=== PATIENT | female | born 1970 | race American Indian/Alaskan Native ===

== ENCOUNTER 2019-03-14 21:01 | Emergency (ER) | payer MEDICAID ==
[2019-03-14] MEDS ORDERED: PROVENTIL IH ONE (21:24)
[2019-03-14] MEDS ORDERED: NACL 0.9% 1000 ML 1,000 ML IV ONE (21:24)
[2019-03-14] MEDS ORDERED: ATIVAN IV STA (21:25)
[2019-03-14 21:51] LABS: Hematocrit 38.4 % (30.3-42.9); Hemoglobin 12.9 gm/dl (10.1-14.3); Mean Corpuscular HGB Conc 34 % (30-34); Mean Corpuscular Volume 82 fl (79-97); Platelet Count 234 K/mm3 (140-440); Red Blood Count 4.69 M/mm3 (3.65-5.03); Red Cell Distribution Width 15.2 % (13.2-15.2)
--- NOTE | 2019-03-14 21:53 | Emergency Department Report ---
ED General Adult HPI - General Chief complaint: Dyspnea/Respdistress Stated complaint: ASTHMA Time Seen by Provider: 03/14/19 21:11 Source: patient, EMS (ems notes not available at time of chart dictation), RN notes reviewed Mode of arrival: Stretcher Limitations: No Limitations - History of Present Illness Initial comments: This is a 48-year-old female. This patient is not known to this provider previously. She reportedly has a past medical history of asthma, HIV, on antiviral therapy, states undetectable viral load, history of right mastectomy, port, 2, question anxiety, question chronic pain, and states that she is not . She presents to the ER today with a complaint of shortness of breath. She reports that she felt like her asthma was acting up earlier on today, and she started to breathe rapidly, and began to cramp up all over. She also reports that she temporarily became unresponsive, and that a friend or family member thought that her "eyes looked glassy." However, the patient states she did not lose consciousness. At the same time, the patient states that she had central chest wall pain is simultaneous back pain. However, she has chronic back pain from scoliosis. She denies recent aspirin use, and she denies DVT, pulmonary embolism risk factors. The patient reportedly took albuterol prior to my arrival, and this improved her respiratory symptoms. She is not having shortness of breath at this time. -: Sudden Location: chest, back Quality: aching Consistency: intermittent Improves with: medication Worsens with: none - Related Data Home Medications Medication Instructions Recorded Confirmed Last Taken ALBUTEROL NEB's [Proventil] 2.5 mg IH TID PRN 03/14/19 03/14/19 Unknown ALBUTEROL NEB's [Proventil] 2.5 mg IH TID PRN 03/14/19 03/14/19 Unknown Acyclovir [Zovirax Tab] 400 mg PO DAILY 03/14/19 03/14/19 Unknown Budesonide/Formoterol Fumarate 10.2 gm IH DAILY 03/14/19 03/14/19 Unknown [Symbicort 80-4.5 Mcg Inhaler] Elviteg/Anahi/Emtric/Tenofo Ala 1 tab PO DAILY 03/14/19 03/14/19 Unknown [Genvoya (Nf)] Fluticasone/Salmeterol [Advair 1 puff IH BID 03/14/19 03/14/19 Unknown Diskus 100-50 mcg] Gabapentin [Neurontin] 300 mg PO Q8HR 03/14/19 03/14/19 Unknown Pantoprazole [Protonix] 40 mg PO BID 03/14/19 03/14/19 Unknown Sulfamethoxazole/Trimethoprim 1 each PO BID 03/14/19 03/14/19 Unknown [Bactrim DS TAB] Previous Rx's Medication Instructions Recorded Last Taken Type Acetaminophen [Non-Aspirin Extra 500 mg PO Q6HR PRN #30 tablet 03/14/19 Unknown Rx Strength] Albuterol Sulfate [Proair 90 mcg IH Q4HR PRN #2 aer.pow.ba 03/14/19 Unknown Rx Respiclick] Aspirin [Aspirin BABY CHEW TAB] 81 mg PO QDAY #30 tab.chew 03/14/19 Unknown Rx Famotidine [Pepcid] 20 mg PO BID #30 tablet 03/14/19 Unknown Rx Allergies Allergy/AdvReac Type Severity Reaction Status Date / Time No Known Allergies Allergy Unverified 03/14/19 21:21 ED Review of Systems ROS: Stated complaint: ASTHMA Other details as noted in HPI Constitutional: malaise, weakness Eyes: denies: eye discharge ENT: congestion Respiratory: cough, shortness of breath, wheezing Cardiovascular: chest pain, palpitations Gastrointestinal: denies: vomiting Genitourinary: denies: dysuria Musculoskeletal: back pain, arthralgia, myalgia Skin: denies: lesions Neurological: weakness Psychiatric: anxiety ED Past Medical Hx - Past Medical History Previous Medical History?: Yes Hx of Cancer: Yes (Right Mastectomy) Hx Asthma: Yes Hx HIV: Yes - Surgical History Past Surgical History?: Yes Additional Surgical History: Right Mastectomy, Port, Csection x 2 - Social History Smoking Status: Never Smoker - Medications Home Medications: Home Medications Medication Instructions Recorded Confirmed Last Taken Type ALBUTEROL NEB's [Proventil] 2.5 mg IH TID PRN 03/14/19 03/14/19 Unknown History ALBUTEROL NEB's [Proventil] 2.5 mg IH TID PRN 03/14/19 03/14/19 Unknown History Acetaminophen [Non-Aspirin Extra 500 mg PO Q6HR PRN #30 tablet 03/14/19 Unknown Rx Strength] Acyclovir [Zovirax Tab] 400 mg PO DAILY 03/14/19 03/14/19 Unknown History Albuterol Sulfate [Proair 90 mcg IH Q4HR PRN #2 aer.pow.ba 03/14/19 Unknown Rx Respiclick] Aspirin [Aspirin BABY CHEW TAB] 81 mg PO QDAY #30 tab.chew 03/14/19 Unknown Rx Budesonide/Formoterol Fumarate 10.2 gm IH DAILY 03/14/19 03/14/19 Unknown History [Symbicort 80-4.5 Mcg Inhaler] Elviteg/Anahi/Emtric/Tenofo Ala 1 tab PO DAILY 03/14/19 03/14/19 Unknown History [Genvoya (Nf)] Famotidine [Pepcid] 20 mg PO BID #30 tablet 03/14/19 Unknown Rx Fluticasone/Salmeterol [Advair 1 puff IH BID 03/14/19 03/14/19 Unknown History Diskus 100-50 mcg] Gabapentin [Neurontin] 300 mg PO Q8HR 03/14/19 03/14/19 Unknown History Pantoprazole [Protonix] 40 mg PO BID 03/14/19 03/14/19 Unknown History Sulfamethoxazole/Trimethoprim 1 each PO BID 03/14/19 03/14/19 Unknown History [Bactrim DS TAB] ED Physical Exam - General Limitations: No Limitations General appearance: alert, anxious - Head Head exam: Present: atraumatic, normocephalic - Eye Eye exam: Present: normal appearance - ENT ENT exam: Present: normal exam, normal orophraynx, mucous membranes moist, normal external ear exam - Neck Neck exam: Present: normal inspection, full ROM. Absent: tenderness, meningismus - Respiratory Respiratory exam: Present: normal lung sounds bilaterally, chest wall tenderness (chaperoned by CECILIO Gamboa). Absent: respiratory distress, rales, rhonchi, strid or - Cardiovascular Cardiovascular Exam: Present: regular rate, normal rhythm, normal heart sounds. Absent: bradycardia, tachycardia, irregular rhythm, systolic murmur, diastolic murmur, rubs, gallop - GI/Abdominal GI/Abdominal exam: Present: soft. Absent: distended, tenderness, guarding, rebound, rigid, pulsatile mass - Extremities Exam Extremities exam: Present: normal inspection, full ROM, other (2+ pulses noted in the bilateral upper, lower extremities. Compartments soft. No long bony tenderness. The pelvis is stable.). Absent: pedal edema, joint swelling, calf tenderness - Back Exam Back exam: Present: normal inspection, full ROM. Absent: tenderness, CVA tenderness (R), CVA tenderness (L), paraspinal tenderness, vertebral tenderness - Neurological Exam Neurological exam: Present: alert, oriented X3, other (Extraocular movements intact. Tongue midline. No facial droop. Facial sensation intact to light touch in the V1, V2, V3 distribution bilaterally. 5 and 5 strength in 4 ext remities.. Sensation is intact to light touch in 4 extremities.). Absent: motor sensory deficit - Psychiatric Psychiatric exam: Present: anxious - Skin Skin exam: Present: warm, dry, intact, normal color. Absent: rash ED Course Vital Signs 03/14/19 03/14/19 03/14/19 21:24 22:10 22:30 Temperature 98.9 F Pulse Rate 93 H 110 H Pulse Rate [ 99 H Throughout] Respiratory 22 20 Rate Respiratory 18 Rate [ Throughout] Blood Pressure 124/80 Blood Pressure 114/63 [Left] O2 Sat by Pulse 100 100 Oximetry 03/14/19 22:53 Temperature Pulse Rate Pulse Rate [ Throughout] Respiratory 20 Rate Respiratory Rate [ Throughout] Blood Pressure Blood Pressure [Left] O2 Sat by Pulse Oximetry - Reevaluation(s) Reevaluation #1: 03/14/19 21:58 Differential diagnosis, including but not limited to: Resolved asthma, costochondritis, carpopedal spasm, anxiety, conversion disorder, pneumonia, acute coronary syndrome, pulmonary embolism Assessment and plan: 48-year-old female, clinically sober, quite anxious, reports that she is not , GCS of 15, low risk by heart score, low risk by VICENTA score for major adverse cardiac event, not hypoxic, tachycardia resolved, unlikely to be pulmonary embolism, low risk by well's criteria, with reproducible chest wall pain and what appears to be significant anxiety. We will treat the patient's symptoms, obtained EKG 2, troponin 2, x-ray of the chest, and appropriate screening laboratory studies. If objective testing is unremarkable, as for this hospital's current protocol and policy, the patient may be referred to outpatient cardiology for expedited follow-up for chest pain that is low risk for major adverse cardiac event. Reevaluation #3: 03/14/19 23:23 D-dimer negative. Troponin negative. X-ray of the chest unremarkable. Patient playing on a cellular phone, and in no acute distress. Tachycardia may be multifactorial, likely secondary to underlying anxiety, as well as recent albuterol treatment. However, she continues to saturate well, and neurological ly is unchanged. Reevaluation #4: 03/15/19 00:16 Troponin is negative 2. EKG is unremarkable 2. No active wheezing. Patient in no acute distress. Playing on the cellular phone. Patient suitable to be discharged to follow-up as an outpatient. ED Medical Decision Making - Lab Data Result diagrams: 03/14/19 21:37 03/14/19 21:37 Vital Signs 03/14/19 21:24 Temperature 98.9 F Pulse Rate 93 H Respiratory 22 Rate Blood Pressure 124/80 O2 Sat by Pulse 100 Oximetry Lab Results 03/14/19 Range/Units 21:37 WBC 4.0 L (4.5-11.0) K/mm3 RBC 4.69 (3.65-5.03) M/mm3 Hgb 12.9 (10.1-14.3) gm/dl Hct 38.4 (30.3-42.9) % MCV 82 (79-97) fl MCH 28 (28-32) pg MCHC 34 (30-34) % RDW 15.2 (13.2-15.2) % Plt Count 234 (140-440) K/mm3 - EKG Data -: EKG Interpreted by Me EKG shows normal: sinus rhythm Rate: normal - EKG Data When compared to previous EKG there are: previous EKG unavailable 03/14/19 22:00 This is a normal sinus rhythm, normal axis, QTC 446 ms, high left ventricular voltage, nonspecific motion artifact, there is no prior for comparison, the EKG is abnormal, the EKG is not consistent with ST elevation myocardial infarction. - Radiology Data Radiology results: pending, image reviewed interpreted by me: X-ray of the chest is unremarkable for acute disease. Critical care attestation.: If time is entered above; I have spent that time in minutes in the direct care of this critically ill patient, excluding procedure time. ED Disposition Clinical Impression: Chest wall pain, History of asthma Disposition: TO HOME OR SELFCARE Is pt being admited?: No Does the pt Need Aspirin: No Condition: Stable Instructions: Costochondritis (ED) Additional Instructions: Take the medications as needed/directed. Continue current outpatient medications. Follow-up with a primary care doctor or picker and sorter load and unload within the next 3-5 days for chest wall pain. Return to the emergency room right away with it, worsens or different symptoms, or symptoms not present on the initial emergency room evaluation. Prescriptions: Aspirin [Aspirin BABY CHEW TAB] 81 mg PO QDAY #30 tab.chew Acetaminophen [Non-Aspirin Extra Strength] 500 mg PO Q6HR PRN #30 tablet PRN Reason: Pain , Severe (7-10) Famotidine [Pepcid] 20 mg PO BID #30 tablet Albuterol Sulfate [Proair Respiclick] 90 mcg IH Q4HR PRN #2 aer.pow.ba PRN Reason: Wheezing Referrals: [facility] [Provider Group] - 3-5 Days [facility] [Provider Group] - 3-5 Days
[2019-03-14] MEDS ORDERED: TORADOL IV ONE (22:01)
[2019-03-14] MEDS ORDERED: PEPCID IV ONE (22:01)
[2019-03-14 22:03] LABS: INR 1.06 (0.87-1.13)
[2019-03-14 22:04] LABS: Partial Thromboplastin Time 28.3 Sec. (24.2-36.6)
[2019-03-14 22:15] LABS: BUN/Creatinine Ratio 9; Blood Urea Nitrogen 8 mg/dL (7-17); Calcium 9.9 mg/dL (8.4-10.2); Hemolysis Index 5
--- NOTE | 2019-03-14 23:49 | XRay Report ---
CHEST 2 VIEWS INDICATION / CLINICAL INFORMATION: Dyspnea. COMPARISON: None available. FINDINGS: SUPPORT DEVICES: None. HEART / MEDIASTINUM: The heart size and pulmonary vasculature are normal. LUNGS / PLEURA: There is minimal linear scarring in the right mid lung. The lungs are otherwise clear . No pneumothorax. ADDITIONAL FINDINGS: There are few surgical clips in the right axilla. IMPRESSION: No acute abnormality. Signer Name: Jared Woods MD Signed: 03/14/2019 11:44 PM Workstation Name: [email or web address]
[2019-03-15 03:41] VITALS: BP 128/76
== END 2019-03-15 02:30 | disposition home or self-care (01) ==
LOC: ED 21:01
DX: J45.909 Unspecified asthma, uncomplicated (principal); Z21 Asymptomatic human immunodeficiency virus [HIV] infection status; Z90.11 Acquired absence of right breast and nipple; Z79.899 Other long term (current) drug therapy; Z79.82 Long term (current) use of aspirin
CPT/HCPCS: 36415; 71046; 80048; 82550; 83735; 84484; 85027; 85379; 85610; 85730; 93005; 93010; 94640; 96374; 96375; 99285; J1885; J2060; J7030; 94644

== ENCOUNTER 2021-03-29 17:34 | Emergency (ER) | payer MEDICARE ==
[2021-03-29 21:13] VITALS: BP 127/71
--- NOTE | 2021-03-29 23:43 | Emergency Department Report ---
ED Extremity Problem HPI - General Chief complaint: Extremity Injury, Lower Stated complaint: FOOT PAIN Source: patient Mode of arrival: Ambulatory Limitations: No Limitations - History of Present Illness Initial comments: Patient is a 50-year-old -Mong[place] female with a history of GERD, asthma, chronic osteoarthritis, chronic scoliosis and chronic low back pain with per ipheral neuropathy who presents to the ED with complaint of persistent right plantar foot pain and right ankle pain for the last 3 months intermittently, worse in the last 2 weeks. Patient states that bearing weight makes the pain worse. Patient states that she has previously experienced similar symptoms and was diagnosed with plantar fasciitis and suspects that this latest episode of pain is likely due to a flare of chronic plantar fasciitis. Patient also complains of nasal and sinus congestion with frontal sinus pressure for the last 1 week. Patient denies fall, traumatic injury, nausea, vomiting, chest pain, shortness of breath, lower back pain, heavy lifting, fever, chills, abdominal pain or heavy lifting. MD Complaint: extremity pain (right plantar foot pain; right ankle pain), joint paint (right ankle pain) -: Gradual, month(s) (3) Location: right, lower extremity (plantar foot pain), other (right ankle pain) History of Same: Yes (chronic plantar fasciitis) -: Yes arthralgia Radiation: distal Severity scale (0 -10): 8 Quality: aching, sharp Consistency: constant Improves with: nothing Worsens with: weight bearing, walking, exertion, palpation Associated Symptoms: denies other symptoms, arthralgias (right plantar foot). denies: chest pain, shortness of breath, fever, myalgias - Related Data Home Medications Medication Instructions Recorded Confirmed Last Taken ALBUTEROL NEB's [Proventil] 2.5 mg IH TID PRN 03/14/19 03/14/19 Unknown ALBUTEROL NEB's [Proventil] 2.5 mg IH TID PRN 03/14/19 03/14/19 Unknown Acyclovir [Zovirax Tab] 400 mg PO DAILY 03/14/19 03/14/19 Unknown Budesonide/Formoterol Fumarate 10.2 gm IH DAILY 03/14/19 03/14/19 Unknown [Symbicort 80-4.5 Mcg Inhaler] Elviteg/Anahi/Emtric/Tenofo Ala 1 tab PO DAILY 03/14/19 03/14/19 Unknown [Genvoya (Nf)] Fluticasone/Salmeterol [Advair 1 puff IH BID 03/14/19 03/14/19 Unknown Diskus 100-50 mcg] Gabapentin [Neurontin] 300 mg PO Q8HR 03/14/19 03/14/19 Unknown Pantoprazole [Protonix] 40 mg PO BID 03/14/19 03/14/19 Unknown Sulfamethoxazole/Trimethoprim 1 each PO BID 03/14/19 03/14/19 Unknown [Bactrim DS TAB] Previous Rx's Medication Instructions Recorded Last Taken Type Acetaminophen [Non-Aspirin Extra 500 mg PO Q6HR PRN #30 tablet 03/14/19 Unknown Rx Strength] Albuterol Sulfate [Proair 90 mcg IH Q4HR PRN #2 aer.pow.ba 03/14/19 Unknown Rx Respiclick] Aspirin [Aspirin BABY CHEW TAB] 81 mg PO QDAY #30 tab.chew 03/14/19 Unknown Rx Famotidine [Pepcid] 20 mg PO BID #30 tablet 03/14/19 Unknown Rx Amoxicillin [Trimox CAP] 500 mg PO Q8H #30 capsule 03/29/21 Unknown Rx Naproxen 500 mg PO Q12H PRN #30 tablet 03/29/21 Unknown Rx predniSONE [Deltasone] 60 mg PO QDAY #15 tab 03/29/21 Unknown Rx traMADoL [Ultram] 50 mg PO Q6HR PRN #12 tablet 03/29/21 Unknown Rx Allergies Allergy/AdvReac Type Severity Reaction Status Date / Time No Known Allergies Allergy Verified 03/29/21 21:04 ED Review of Systems ROS: Stated complaint: FOOT PAIN Other details as noted in HPI Constitutional: denies: chills, fever Eyes: denies: eye pain, eye discharge, vision change ENT: denies: ear pain, throat pain Respiratory: denies: cough, shortness of breath, wheezing Cardiovascular: denies: chest pain, palpitations Endocrine: no symptoms reported Gastrointestinal: denies: abdominal pain, nausea, vomiting, diarrhea Genitourinary: denies: urgency, dysuria, discharge Musculoskeletal: arthralgia (right plantar foot and ankle pain). denies: back pain, joint swelling, myalgia, other Skin: denies: rash, lesions Neurological: denies: headache, weakness, paresthesias Psychiatric: denies: anxiety, depression Hematological/Lymphatic: denies: easy bleeding, easy bruising ED Past Medical Hx - Past Medical History Hx GERD: Yes Hx Arthritis: Yes Hx Asthma: Yes Hx HIV: Yes Additional medical history: Chronic low back pain with peripheral neuropathy - Surgical History Additional Surgical History: Right Mastectomy, Port, Csection x 2 - Social History Smoking Status: Never Smoker - Medications Home Medications: Home Medications Medication Instructions Recorded Confirmed Last Taken Type ALBUTEROL NEB's [Proventil] 2.5 mg IH TID PRN 03/14/19 03/14/19 Unknown History ALBUTEROL NEB's [Proventil] 2.5 mg IH TID PRN 03/14/19 03/14/19 Unknown History Acetaminophen [Non-Aspirin Extra 500 mg PO Q6HR PRN #30 tablet 03/14/19 Unknown Rx Strength] Acyclovir [Zovirax Tab] 400 mg PO DAILY 03/14/19 03/14/19 Unknown History Albuterol Sulfate [Proair 90 mcg IH Q4HR PRN #2 aer.pow.ba 03/14/19 Unknown Rx Respiclick] Aspirin [Aspirin BABY CHEW TAB] 81 mg PO QDAY #30 tab.chew 03/14/19 Unknown Rx Budesonide/Formoterol Fumarate 10.2 gm IH DAILY 03/14/19 03/14/19 Unknown History [Symbicort 80-4.5 Mcg Inhaler] Elviteg/Anahi/Emtric/Tenofo Ala 1 tab PO DAILY 03/14/19 03/14/19 Unknown History [Genvoya (Nf)] Famotidine [Pepcid] 20 mg PO BID #30 tablet 03/14/19 Unknown Rx Fluticasone/Salmeterol [Advair 1 puff IH BID 03/14/19 03/14/19 Unknown History Diskus 100-50 mcg] Gabapentin [Neurontin] 300 mg PO Q8HR 03/14/19 03/14/19 Unknown History Pantoprazole [Protonix] 40 mg PO BID 03/14/19 03/14/19 Unknown History Sulfamethoxazole/Trimethoprim 1 each PO BID 03/14/19 03/14/19 Unknown History [Bactrim DS TAB] Amoxicillin [Trimox CAP] 500 mg PO Q8H #30 capsule 03/29/21 Unknown Rx Naproxen 500 mg PO Q12H PRN #30 tablet 03/29/21 Unknown Rx predniSONE [Deltasone] 60 mg PO QDAY #15 tab 03/29/21 Unknown Rx traMADoL [Ultram] 50 mg PO Q6HR PRN #12 tablet 03/29/21 Unknown Rx ED Physical Exam - General Limitations: No Limitations General appearance: alert, in no apparent distress - Head Head exam: Present: atraumatic, normocephalic, normal inspection - Eye Eye exam: Present: normal appearance, PERRL, EOMI Pupils: Present: normal accommodation - ENT ENT exam: Present: normal exam, normal orophraynx, mucous membranes moist, TM's normal bilaterally, normal external ear exam, other (Grossly congested nasal passages) - Neck Neck exam: Present: normal inspection, full ROM - Respiratory Respiratory exam: Present: normal lung sounds bilaterally. Absent: respiratory distress, wheezes, rales, rhonchi, chest wall tenderness, accessory muscle use, decreased breath sounds, prolonged expiratory - Cardiovascular Cardiovascular Exam: Present: regular rate, normal rhythm, normal heart sounds. Absent: systolic murmur, diastolic murmur, rubs, gallop - GI/Abdominal GI/Abdominal exam: Present: soft, normal bowel sounds. Absent: tenderness, guarding, rebound, hyperactive bowel sounds, hypoactive bowel sounds - Extremities Exam Extremities exam: Present: normal inspection, tenderness (Palpable right plantar foot tenderness; palpable right ankle joint tenderness), normal capillary refill. Absent: pedal edema, joint swelling, calf tenderness - Back Exam Back exam: Present: normal inspection, full ROM. Absent: tenderness, CVA tenderness (R), CVA tenderness (L), muscle spasm, paraspinal tenderness, vertebral tenderness - Neurological Exam Neurological exam: Present: alert, oriented X3, CN II-XII intact, normal gait, reflexes normal - Psychiatric Psychiatric exam: Present: normal affect, normal mood - Skin Skin exam: Present: warm, dry, intact, normal color. Absent: rash ED Course Vital Signs 03/29/21 21:03 Temperature 98.5 F Pulse Rate 73 Respiratory 20 Rate Blood Pressure 127/71 O2 Sat by Pulse 97 Oximetry ED Medical Decision Making - Medical Decision Making This is a 50-year-old -Mong[place] female with a history of GERD, asthma, chronic osteoarthritis, chronic scoliosis and chronic low back pain with periphe ral neuropathy who presents to the ED with complaint of persistent right plantar foot pain and right ankle pain for the last 3 months intermittently, worse in the last 2 weeks. Patient states that bearing weight makes the pain worse. Patient states that she has previously experienced similar symptoms and was diagnosed with plantar fasciitis and suspects that this latest episode of pain is likely due to a flare of chronic plantar fasciitis. Patient also complains of nasal and sinus congestion with frontal sinus pressure for the last 1 week. In the ED, patient is alert and oriented x3 and is not in any distress. Based on the history and physical exam findings patient symptoms are likely due to right plantar fasciitis of right foot. Patient was therefore discharged home on medications for pain and advised to follow-up with her primary care physician in 5 to 7 days for reevaluation. Patient was advised return to the ED immediately if symptoms get worse. - Differential Diagnosis Plantar fasciitis; Ankle sprain; Muscle strain; URI; Sinusitis Critical care attestation.: If time is entered above; I have spent that time in minutes in the direct care of this critically ill patient, excluding procedure time. ED Disposition Clinical Impression: Plantar fasciitis of right foot Severe sprain of right ankle Qualifiers: Encounter type: initial encounter Qualified Code(s): S93.401A - Sprain of unspecified ligament of right ankle, initial encounter Acute frontal sinusitis, unspecified Qualifiers: Recurrence: non-recurrent Qualified Code(s): J01.10 - Acute frontal sinusitis, unspecified Disposition: 01 HOME / SELF CARE / HOMELESS Is pt being admited?: No Does the pt Need Aspirin: No Condition: Stable Instructions: Ankle Sprain, [id number], Sinusitis, Adult, [id number], Upper Respiratory Infection, Adult, [id number], Plantar Fasciitis Rehab-SportsMed Additional Instructions: Take medications with food, drink plenty of fluids and follow up with your Primary care Physician in 7-10 days for reevaluation. Return to the ED immediately if symptoms get worse. Prescriptions: predniSONE [Deltasone] 60 mg PO QDAY #15 tab Naproxen 500 mg PO Q12H PRN #30 tablet PRN Reason: Pain , Severe (7-10) Amoxicillin [Trimox CAP] 500 mg PO Q8H #30 capsule traMADoL [Ultram] 50 mg PO Q6HR PRN #12 tablet PRN Reason: Pain Referrals: [facility] [Provider Group] - 3-5 Days Time of Disposition: 23:45 Print Language: ALBANIAN
== END 2021-03-30 00:38 | disposition home or self-care (01) ==
LOC: ED 17:34
DX: S93.401A Sprain of unspecified ligament of right ankle, initial encounter (principal); J01.10 Acute frontal sinusitis, unspecified; M72.2 Plantar fascial fibromatosis; K21.9 Gastro-esophageal reflux disease without esophagitis; M19.90 Unspecified osteoarthritis, unspecified site; B20 Human immunodeficiency virus [HIV] disease; M54.5 Low back pain; G62.9 Polyneuropathy, unspecified; Z98.890 Other specified postprocedural states; X58.XXXA Exposure to other specified factors, initial encounter; Y93.89 Activity, other specified; Y92.89 Other specified places as the place of occurrence of the external cause; Y99.8 Other external cause status
CPT/HCPCS: 99281

== ENCOUNTER 2021-04-08 14:02 | Emergency (ER) | payer MEDICARE ==
[2021-04-08 14:49] VITALS: BP 127/70
--- NOTE | 2021-04-08 17:03 | Emergency Department Report ---
- General Chief Complaint: Upper Respiratory Infection Stated Complaint: CONGESTION/COUGH Time Seen by Provider: 04/08/21 16:59 Source: patient Mode of arrival: Ambulatory Limitations: No Limitations - History of Present Illness Initial Comments: Patient is a 50-year-old female who presents emergency room with complaints of a cough that began 2 weeks ago. She states that she also has headache and congestion. She does not report any fever, nausea, vomiting, diarrhea, shortness of breath, leg swelling, chest pain, abdominal pain, urinary symptoms. Past medical history of asthma, scoliosis, breast cancer in remission for 3 and half years. No allergies to medications. She is a non-smoker. Patient also brought in her 3 other grandchildren who have the same symptoms. She has not been tested for COVID-19 and she is requesting COVID-19 for her whole family. - Related Data Home Medications Medication Instructions Recorded Confirmed Last Taken ALBUTEROL NEB's [Proventil] 2.5 mg IH TID PRN 03/14/19 03/14/19 Unknown ALBUTEROL NEB's [Proventil] 2.5 mg IH TID PRN 03/14/19 03/14/19 Unknown Acyclovir [Zovirax Tab] 400 mg PO DAILY 03/14/19 03/14/19 Unknown Budesonide/Formoterol Fumarate 10.2 gm IH DAILY 03/14/19 03/14/19 Unknown [Symbicort 80-4.5 Mcg Inhaler] Elviteg/Anahi/Emtric/Tenofo Ala 1 tab PO DAILY 03/14/19 03/14/19 Unknown [Genvoya (Nf)] Fluticasone/Salmeterol [Advair 1 puff IH BID 03/14/19 03/14/19 Unknown Diskus 100-50 mcg] Gabapentin [Neurontin] 300 mg PO Q8HR 03/14/19 03/14/19 Unknown Pantoprazole [Protonix] 40 mg PO BID 03/14/19 03/14/19 Unknown Sulfamethoxazole/Trimethoprim 1 each PO BID 03/14/19 03/14/19 Unknown [Bactrim DS TAB] Previous Rx's Medication Instructions Recorded Last Taken Type Acetaminophen [Non-Aspirin Extra 500 mg PO Q6HR PRN #30 tablet 03/14/19 Unknown Rx Strength] Albuterol Sulfate [Proair 90 mcg IH Q4HR PRN #2 aer.pow.ba 03/14/19 Unknown Rx Respiclick] Aspirin [Aspirin BABY CHEW TAB] 81 mg PO QDAY #30 tab.chew 03/14/19 Unknown Rx Famotidine [Pepcid] 20 mg PO BID #30 tablet 03/14/19 Unknown Rx Amoxicillin [Trimox CAP] 500 mg PO Q8H #30 capsule 03/29/21 Unknown Rx Naproxen 500 mg PO Q12H PRN #30 tablet 03/29/21 Unknown Rx predniSONE [Deltasone] 60 mg PO QDAY #15 tab 03/29/21 Unknown Rx traMADoL [Ultram] 50 mg PO Q6HR PRN #12 tablet 03/29/21 Unknown Rx Allergies Allergy/AdvReac Type Severity Reaction Status Date / Time No Known Allergies Allergy Verified 04/08/21 14:49 ED Review of Systems ROS: Stated complaint: CONGESTION/COUGH Other details as noted in HPI Comment: All other systems reviewed and negative ED Past Medical Hx - Past Medical History Hx GERD: Yes Hx Arthritis: Yes Hx Asthma: Yes Hx HIV: Yes Additional medical history: Chronic low back pain with peripheral neuropathy - Surgical History Additional Surgical History: Right Mastectomy, Port, Csection x 2 - Social History Smoking Status: Never Smoker - Medications Home Medications: Home Medications Medication Instructions Recorded Confirmed Last Taken Type ALBUTEROL NEB's [Proventil] 2.5 mg IH TID PRN 03/14/19 03/14/19 Unknown History ALBUTEROL NEB's [Proventil] 2.5 mg IH TID PRN 03/14/19 03/14/19 Unknown History Acetaminophen [Non-Aspirin Extra 500 mg PO Q6HR PRN #30 tablet 03/14/19 Unknown Rx Strength] Acyclovir [Zovirax Tab] 400 mg PO DAILY 03/14/19 03/14/19 Unknown History Albuterol Sulfate [Proair 90 mcg IH Q4HR PRN #2 aer.pow. 03/14/19 Unknown Rx Respiclick] Aspirin [Aspirin BABY CHEW TAB] 81 mg PO QDAY #30 tab.chew 03/14/19 Unknown Rx Budesonide/Formoterol Fumarate 10.2 gm IH DAILY 03/14/19 03/14/19 Unknown History [Symbicort 80-4.5 Mcg Inhaler] Elviteg/Anahi/Emtric/Tenofo Ala 1 tab PO DAILY 03/14/19 03/14/19 Unknown History [Genvoya (Nf)] Famotidine [Pepcid] 20 mg PO BID #30 tablet 03/14/19 Unknown Rx Fluticasone/Salmeterol [Advair 1 puff IH BID 03/14/19 03/14/19 Unknown History Diskus 100-50 mcg] Gabapentin [Neurontin] 300 mg PO Q8HR 03/14/19 03/14/19 Unknown History Pantoprazole [Protonix] 40 mg PO BID 03/14/19 03/14/19 Unknown History Sulfamethoxazole/Trimethoprim 1 each PO BID 03/14/19 03/14/19 Unknown History [Bactrim DS TAB] Amoxicillin [Trimox CAP] 500 mg PO Q8H #30 capsule 03/29/21 Unknown Rx Naproxen 500 mg PO Q12H PRN #30 tablet 03/29/21 Unknown Rx predniSONE [Deltasone] 60 mg PO QDAY #15 tab 03/29/21 Unknown Rx traMADoL [Ultram] 50 mg PO Q6HR PRN #12 tablet 03/29/21 Unknown Rx ED Physical Exam - General Limitations: No Limitations General appearance: alert, in no apparent distress - Head Head exam: Present: atraumatic, normocephalic - Eye Eye exam: Present: normal appearance - ENT ENT exam: Present: mucous membranes moist - Respiratory Respiratory exam: Present: normal lung sounds bilaterally. Absent: respiratory distress, wheezes, rales, rhonchi, stridor, chest wall tenderness, accessory muscle use, decreased breath sounds, prolonged expiratory - Cardiovascular Cardiovascular Exam: Present: regular rate, normal rhythm, normal heart sounds. Absent: systolic murmur, diastolic murmur, rubs, gallop - Neurological Exam Neurological exam: Present: alert, oriented X3 - Psychiatric Psychiatric exam: Present: normal affect, normal mood - Skin Skin exam: Present: warm, dry, intact ED Course Vital Signs 04/08/21 04/08/21 14:48 17:21 Temperature 98.7 F Pulse Rate 66 72 Respiratory 18 Rate Blood Pressure 127/70 [Left] O2 Sat by Pulse 100 Oximetry ED Medical Decision Making - Medical Decision Making Patient is a 50-year-old female who presents emergency room with complaints of a cough that began 2 weeks ago. She states that she also has headache and congestion. She does not report any fever, nausea, vomiting, diarrhea, shortness of breath, leg swelling, chest pain, abdominal pain, urinary symptoms. Past medical history of asthma, scoliosis, breast cancer in remission for 3 and half years. No allergies to medications. She is a non-smoker. Patient also brought in her 3 other grandchildren who have the same symptoms. She has not been tested for COVID-19 and she is requesting COVID-19 for her whole family. Vitals are normal. No abnormality on physical examination as documented in chart. This hospital facility does not test for COVID-19 on patients that are being discharged home. She has no fever, no hypoxia, her breath sounds are clear bilaterally. Symptoms could be related to URI. Advised patient Please increase your fluid intake over the next several days. May take Tylenol as needed for fever or body aches. May take [id number] cold symptom relief medication such as Mucinex or TheraFlu. Get plenty of rest. Follow-up with a primary care doctor for reexamination. Return to emergency room immediately for any new or worsening symptoms including but not limited to difficulty breathing, shortness of breath, severe chest pain, unable to tolerate by mouth intake, etc. Critical care attestation.: If time is entered above; I have spent that time in minutes in the direct care of this critically ill patient, excluding procedure time. ED Disposition Clinical Impression: Upper respiratory infection Qualifiers: URI type: unspecified URI Qualified Code(s): J06.9 - Acute upper respiratory infection, unspecified Disposition: 01 HOME / SELF CARE / HOMELESS Is pt being admited?: No Does the pt Need Aspirin: No Condition: Stable Instructions: Viral Respiratory Infection Additional Instructions: Please increase your fluid intake over the next several days. May take Tylenol as needed for fever or body aches. May take [id number] cold symptom relief medication such as Mucinex or TheraFlu. Get plenty of rest. Follow-up with a primary care doctor for reexamination. Return to emergency room immediately for any new or worsening symptoms including but not limited to difficulty breathing, shortness of breath, severe chest pain, unable to tolerate by mouth intake, etc. Referrals: ANTONIO TANG MD [Staff Physician] - 3-5 Days [facility] [Provider Group] - 3-5 Days Forms: Work/School Release Form(ED) Time of Disposition: 17:02 Print Language: GUINEAN
== END 2021-04-08 17:11 | disposition home or self-care (01) ==
LOC: ED 14:02
DX: J06.9 Acute upper respiratory infection, unspecified (principal); J45.909 Unspecified asthma, uncomplicated
CPT/HCPCS: 99281